=== PATIENT | female | born 1995 ===

== ENCOUNTER 2022-10-14 20:05 | Emergency (ER) | payer OTHER, SELFPAY ==
[2022-10-14 20:18] VITALS: BP 129/75; PULSE 83; RESP 15; TEMP 36.4; O2SAT 96; BMI 44.2
[2022-10-14 21:06] VITALS: BP 113/69; PULSE 80; RESP 18; O2SAT 97
[2022-10-14 23:10] VITALS: BP 123/72; PULSE 73; RESP 20; O2SAT 96
[2022-10-15 01:57] VITALS: BP 123/95; PULSE 75; RESP 18; O2SAT 100
--- NOTE | 2022-10-15 02:25 | ED.BACK ---
HPI - Back Pain/Injury General Chief Complaint: Back Pain/Injury Stated Complaint: Rt side strain inj Time Seen by Provider: 10/15/22 02:10 Source: patient History of Present Illness HPI Narrative: Patient is a 27-year-old female who presents with right-sided back pain. 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 It is in her lower back whenever she stands up and tries to move it spreads all the way to her upper back. She is some numbness tingling down her legs as well. No prior history of this happening before. No changes in bowel or bladder habits. Related Data Previous Rx's Medication Instructions Recorded cyclobenzaprine 5 mg tablet 5 mg PO TID PRN muscle spasm #10 10/15/22 tabs hydrocodone 5 mg-acetaminophen 325 1 tab PO Q6H PRN pain #10 tabs 10/15/22 mg tablet Allergies Allergy/AdvReac Type Severity Reaction Status Date / Time ibuprofen Allergy Hives Verified 10/14/22 20:18 Penicillins Allergy Anaphylaxis Verified 10/14/22 20:18 Review of Systems Review of Systems ROS Unobtainable: All systems reviewed & are unremarkable except as noted in HPI and below Patient History Social History Smoking Status: Current every day smoker Smoking Status: Current every day smoker Substance Use Type: marijuana Exam Initial Vital Signs Initial Vital Signs: Vital Signs Temperature 97.5 F L 10/14/22 20:18 Pulse Rate 83 10/14/22 20:18 Respiratory Rate 15 10/14/22 20:18 Blood Pressure 129/75 10/14/22 20:18 Pulse Oximetry 96 10/14/22 20:18 Oxygen Delivery Method Room Air 10/14/22 20:18 GENERAL: Alert 27-year-old female CARDIOVASCULAR: peripheral pulses in tact, cap refill <2 sec RESPIRATORY: No respiratory distress, speaks in full sentences without difficulty BACK: Tender along her right thoracic and lumbar back and her buttock. Pain is reproducible with palpation. EXTREMITIES: Normal range of motion, no clubbing or edema. Neurovascularly intact NEUROLOGICAL: Cranial nerves II through XII grossly intact. Normal gait and speech. SKIN: Warm, dry, no petechiae, no rashes or lesions. Course Orders Ordered: Discontinued Medications Acetaminophen (Acetaminophen 325 Mg Tablet) 975 mg PO NOW ONE Stop: 10/15/22 02:11 Last Admin: 10/15/22 02:36 Dose: 975 mg Documented By: KEN Hydrocodone Bitart/Acetaminophen (Hydrocodone/Acet 5/325 Prepack) 1 bottle MISC SEEINSTR ONE Stop: 10/15/22 02:33 Last Admin: 10/15/22 02:36 Dose: 1 bottle Documented By: KEN Cyclobenzaprine HCl (Cyclobenzaprine 10 Mg Prepack) 1 bottle MISC SEEINSTR ONE Stop: 10/15/22 02:33 Last Admin: 10/15/22 02:36 Dose: 1 bottle Documented By: KEN Vital Signs Vital signs: Vital Signs - 8 hr 10/14/22 20:18 10/14/22 21:06 10/14/22 23:10 Temperature 97.5 F L Pulse Rate 83 80 73 Respiratory Rate 15 18 20 Blood Pressure 129/75 113/69 123/72 Pulse Oximetry 96 97 96 Oxygen Delivery Method Room Air Room Air Room Air 10/15/22 01:57 Temperature Pulse Rate 75 Respiratory Rate 18 Blood Pressure 123/95 H Pulse Oximetry 100 Oxygen Delivery Method Room Air MDM - Back Pain/Injury MDM Narrative Medical decision making narrative: Patient 27-year-old female who presents with right-sided back pain after pulling patient. She has symptoms consistent with a muscle spasm all. Pain is reproducible with palpation. She is allergic to ibuprofen causes hives. She was given a dose Tylenol initially. But is still in quite a bit of pain. No symptoms of cauda equina. Discharge Plan Departure Patient Disposition: Home Clinical Impression: Strain of lumbar region Instructions: DI for Back Pain With Sciatica Activity Restrictions/Additional Instructions: *You have been diagnosed with back pain with sciatica *What to do: At this time increase activity as tolerated. Light activity and walking is encouraged. Recommend stretching and heating pad. *Continue to take medications as directed [place] 1 tablet every 6 hours if needed for severe pain--> Flexeril 5 mg every 8 hours if needed for muscle spasm *Follow up with your primary care provider in 2-3 days or call [phone] *Return to ER if you should have increasing pain numbness tingling weakness changes in bowel or bladder habits or any new, worsening or concerning symptoms CONTROLLED SUBSTANCE DISCHARGE (Narcotoic/benzodiazepine/Flexeril/Phenergan) 1. You have been prescribed narcotic medications, it does have acetaminophen/Tylenol/paracetamol in it, DO NOT TAKE MORE THAN 4,00mg in 24 hours of Tylenol. TRAMADOL DOES NOT CONTAIN TYLENOL 2. Please understand that we cannot provide further refills of narcotics, benzodiazepines or controlled substances through the ED and her pain management will need to be through your provider. 3. While on these medications you cannot drive or operate heavy machinery. 4. You cannot sign legal documents or perform any duties such as this. 5. As long as you're taking opiate pain medications he should also be taking a stool softener such as Colace, Dulcolax, MiraLAX or prune juice, to help avoid constipation. Prescriptions: New hydrocodone-acetaminophen 5-325 mg tablet 1 tab PO Q6H PRN (Reason: pain) Qty: 10 0RF cyclobenzaprine 5 mg tablet 5 mg PO TID PRN (Reason: muscle spasm) Qty: 10 0RF Stand Alone Forms: Patient Portal/API
[2022-10-15] MEDS: CYCLOBENZAPRINE 10 MG PREPACK 1 BOTTLE MISC (02:36)
[2022-10-15] MEDS: HYDROCODONE/ACET 5/325 PREPACK 1 BOTTLE MISC (02:36)
[2022-10-15] MEDS: ACETAMINOPHEN 325 MG TABLET 975 MG PO (02:36)
== END 2022-10-15 02:52 | disposition home or self-care (01) ==
PROVIDERS: Emergency Provider Emergency Medicine
DX: S39.012A Strain of muscle, fascia and tendon of lower back, initial encounter (principal); X50.0XXA Overexertion from strenuous movement or load, initial encounter; Y99.0 Civilian activity done for income or pay
CPT/HCPCS: 99283